=== PATIENT | female | born 1960 | race Caucasian/White ===

== ENCOUNTER 2022-02-06 08:43 | Outpatient (CLI) | payer OTHER, SELFPAY ==
[2022-02-06 13:30] LABS: Albumin* 4.6 g/dL (3.3-5.0); Chloride* 102 mmol/L (96-114); Sodium* 139 mmol/L (135-149)
[2022-02-06 13:33] LABS: Alkaline Phosphatase* 120 U/L (40-150); Aspartate Amino Transferase* 37 U/L (12-35); Bilirubin Total* 1.7 mg/dL (0.1-1.5); Blood Urea Nitrogen* 18 mg/dL (7-30); Carbon Dioxide* 27 mmol/L (20-32); Creatinine* 0.6 mg/dL (0.5-1.5); Estimated Glomerular Filt Rate 101 ml/min; Total Protein* 7.5 g/dL (6.0-8.3)
[2022-02-06 13:34] LABS: Alanine Aminotransferase* 50 U/L (4-35); Calcium* 10.3 mg/dL (8.4-10.6); Glucose* 104 mg/dL (60-115)
== END 2022-02-06 08:44 | disposition home or self-care (01) ==
LOC: FRMREF 08:44
PROVIDERS: PCP Physician Assistant Medical; Visit Provider Family Medicine
DX: E11.9 Type 2 diabetes mellitus without complications (principal); I10 Essential (primary) hypertension; R42 Dizziness and giddiness
CPT/HCPCS: 80053

== ENCOUNTER 2022-02-16 12:36 | Outpatient (CLI) | payer OTHER, SELFPAY ==
--- NOTE | 2022-02-16 13:00 | CRLHL7_ITS ---
For Patients: As a result of the Cures Act, medical imaging exams and procedure reports are released immediately into your electronic medical record. You may view this report before your referring provider. If you have questions, please contact your health care provider. INDICATION: DIZZINESS COMPARISON: none TECHNIQUE: The carotid circulations and the vertebral arteries in the neck were examined with daniels-scale ultrasound, color-flow and Doppler spectral analysis. Degrees of stenosis were determined using SRU 2002 Consensus Panel Criteria. FINDINGS: Sonographic images demonstrate no evidence of atherosclerotic plaque formation or suspicious soft tissue mass. The spectral Doppler tracings of the common carotid, internal and external carotid arteries demonstrate no abnormal turbulence or spectral broadening. There was no significant elevation of peak systolic blood flow which would indicate a hemodynamically significant stenosis by NASCET criteria. The ICA/CCA peak systolic velocity ratio measures 1.2 on the right and 0.6 on the left. There was antegrade blood flow demonstrated within the vertebral arteries. IMPRESSION: Normal carotid ultrasound. Dictated by Abel Lo MD @ 02/17/2022 8:27:51 AM (Electronically Signed)
== END 2022-02-16 12:37 | disposition home or self-care (01) ==
PROVIDERS: PCP Physician Assistant Medical; Visit Provider Family Medicine
DX: R42 Dizziness and giddiness (principal); R01.1 Cardiac murmur, unspecified; I35.1 Nonrheumatic aortic (valve) insufficiency; I34.0 Nonrheumatic mitral (valve) insufficiency
CPT/HCPCS: 93306; 93880

== ENCOUNTER 2022-07-26 07:54 | Outpatient (CLI) | payer OTHER, SELFPAY | END 2022-07-26 07:55 | disposition home or self-care (01) | LOC: NFLDREF 23:04 | PROVIDERS: PCP Physician Assistant Medical; Referring Provider Physician Assistant Medical; Visit Provider Physician Assistant Medical | DX: E11.9 Type 2 diabetes mellitus without complications (principal); E78.2 Mixed hyperlipidemia; I10 Essential (primary) hypertension; R79.89 Other specified abnormal findings of blood chemistry | CPT/HCPCS: 80053; 80061; 84443 ==

== ENCOUNTER 2023-05-10 15:15 | Outpatient (CLI) | payer OTHER, SELFPAY ==
--- NOTE | 2023-05-10 15:20 | CRLHL7_ITS ---
For Patients: As a result of the Century Cures Act, medical imaging exams and procedure reports are released immediately into your electronic medical record. You may view this report before your referring provider. If you have questions, please contact your health care provider. BILATERAL SCREENING MAMMOGRAM WITH COMPUTER-AIDED DETECTION AND TOMOSYNTHESIS TECHNIQUE: CC and MLO views were obtained. These mammographic images have been obtained using full-field digital technique. These mammographic images were interpreted with the benefit of computer-aided detection. Breast tomosynthesis was used in this interpretation. COMPARISON FILM: 05/30/21, 05/31/11, 11/27/06. FINDINGS: The breasts are heterogeneously dense, which may obscure small masses. IMPRESSION: There is no radiographic evidence for malignancy. ASSESSMENT: BI-RADS Category 2: Benign RECOMMENDATION: Routine screening mammogram in 1 year. A lay language report of this examination will be provided to the patient. ABEL ADAMS M.D. Diagnostic Radiologist [email or web address] Transcribed: 05/11/2023, 1:[address]/Dictated by: Abel Adams MD @ 05/11/2023 12:27:00 PM (Electronically Signed)
== END 2023-05-10 15:16 | disposition home or self-care (01) ==
LOC: MAMMO 15:16
PROVIDERS: PCP Physician Assistant Medical; Visit Provider Physician Assistant Medical
DX: Z12.31 Encounter for screening mammogram for malignant neoplasm of breast (principal); R92.2 Inconclusive mammogram
CPT/HCPCS: 77063; 77067

== ENCOUNTER 2023-07-09 07:43 | Outpatient (CLI) | payer OTHER, SELFPAY | END 2023-07-09 07:44 | disposition home or self-care (01) | LOC: NFLDREF 07-20 09:35 | PROVIDERS: PCP Physician Assistant Medical; Referring Provider Physician Assistant Medical; Visit Provider Physician Assistant Medical | DX: Z00.00 Encounter for general adult medical examination without abnormal findings (principal); E11.9 Type 2 diabetes mellitus without complications; E78.2 Mixed hyperlipidemia; I10 Essential (primary) hypertension; E66.01 Morbid (severe) obesity due to excess calories; R79.89 Other specified abnormal findings of blood chemistry | CPT/HCPCS: 80053; 80061; 82043; 82570; 84443 ==

== ENCOUNTER 2024-04-25 07:29 | Outpatient (CLI) | payer OTHER, SELFPAY | END 2024-04-25 07:30 | disposition home or self-care (01) | PROVIDERS: PCP Physician Assistant Medical; Referring Provider Physician Assistant Medical; Visit Provider Physician Assistant Medical | DX: E11.9 Type 2 diabetes mellitus without complications (principal); I10 Essential (primary) hypertension; E78.2 Mixed hyperlipidemia | CPT/HCPCS: 80053; 80061; 82043; 82570; 84443 ==

== ENCOUNTER 2024-08-27 08:25 | Outpatient (CLI) | payer OTHER, SELFPAY ==
--- NOTE | 2024-08-27 08:45 | CRLHL7_ITS ---
For Patients: As a result of the Cures Act, medical imaging exams and procedure reports are released immediately into your electronic medical record. You may view this report before your referring provider. If you have questions, please contact your health care provider. DIGITAL DIAGNOSTIC BILATERAL MAMMOGRAM USING TOMOSYNTHESIS AND COMPUTER-AIDED DETECTION LEFT BREAST ULTRASOUND CLINICAL HISTORY: LEFT breast nipple discharge. COMPARISON: 05/10/23, 05/30/21, 05/31/11. TECHNIQUE: Digital BILATERAL mammogram in four projections with computer-aided detection. Tomosynthesis was used in this interpretation. Real-time ultrasound imaging of LEFT breast with imaging documentation. BREAST COMPOSITION: There are scattered areas of fibroglandular density. FINDINGS: 3D CC/MLO BILATERAL mammogram images submitted. Stable nodular density within the LEFT breast. No suspicious masses or architectural distortion. No suspicious calcifications or axillary adenopathy. Targeted LEFT breast ultrasound performed in the retroareolar region. Incidental mild multi duct ectasia is present. No intraductal nodule or solid mass. No fluid collection or abscess. IMPRESSION: No suspicious findings. RECOMMENDATIONS: Clinical follow-up. Routine screening mammography. A lay language report of this examination will be provided to the patient. BI-RADS Category 2: Benign Dictated by Abel Lo MD @ 08/27/2024 9:46:22 AM jj/Dictated by: Abel Lo MD @ 08/27/2024 9:46:00 AM (Electronically Signed)
--- NOTE | 2024-08-27 09:15 | CRLHL7_ITS ---
For Patients: As a result of the Cures Act, medical imaging exams and procedure reports are released immediately into your electronic medical record. You may view this report before your referring provider. If you have questions, please contact your health care provider. SEE DIGITAL DIAGNOSTIC BILATERAL MAMMOGRAM PERFORMED SAME DAY CRL:[email or web address] archer/Dictated by: Abel Lo MD @ 08/27/2024 9:46:00 AM (Electronically Signed)
== END 2024-08-27 08:26 | disposition home or self-care (01) ==
LOC: MAMMO 08:25
PROVIDERS: PCP Physician Assistant Medical; Visit Provider Family Medicine
DX: N64.52 Nipple discharge (principal)
CPT/HCPCS: 76642; 77066; G0279

== ENCOUNTER 2024-10-03 10:50 | Outpatient (CLI) | payer OTHER, SELFPAY | END 2024-10-03 10:51 | disposition home or self-care (01) | LOC: NFLDREF 10-08 00:30 | PROVIDERS: PCP Physician Assistant Medical; Referring Provider Physician Assistant Medical; Visit Provider Physician Assistant Medical | DX: E11.9 Type 2 diabetes mellitus without complications (principal); I10 Essential (primary) hypertension; E78.2 Mixed hyperlipidemia; R79.89 Other specified abnormal findings of blood chemistry; Z79.85 Long-term (current) use of injectable non-insulin antidiabetic drugs | CPT/HCPCS: 80053; 80061; 82043; 82570; 84443 ==

== ENCOUNTER 2024-10-28 16:15 | Outpatient (RCR) | payer MEDICARE, OTHER, BC, SELFPAY | END 2025-02-25 23:59 | disposition home or self-care (01) | PROVIDERS: PCP Physician Assistant Medical; Visit Provider Family Medicine | DX: M79.2 Neuralgia and neuritis, unspecified (principal); M54.2 Cervicalgia; M54.6 Pain in thoracic spine; Z51.89 Encounter for other specified aftercare | CPT/HCPCS: 97012; 97032; 97110; 97112; 97140; 97162 ==

== ENCOUNTER 2025-03-25 11:08 | Outpatient (CLI) | payer MEDICARE, BC, SELFPAY | END 2025-03-25 11:09 | disposition home or self-care (01) | LOC: NFLDREF 03-28 19:25 | PROVIDERS: PCP Physician Assistant Medical; Referring Provider Physician Assistant Medical; Visit Provider Family Medicine | DX: R19.7 Diarrhea, unspecified (principal) | CPT/HCPCS: 87493 ==